=== PATIENT | female | born 1960 | race Caucasian/White ===

== ENCOUNTER 2024-02-11 09:50 | Outpatient (AMB) | payer OTHER, SELFPAY ==
--- NOTE | 2024-02-11 10:29 | MHC.PC.OV ---
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 Is last menstrual period known: No Post menopausal: Yes Patient : No Allergies No Known Allergies Allergy (Verified 02/11/24 10:30) Medication List - Last Reconciled 02/11/24 by Luis Cherry MD No Known Home Meds Tobacco use date assessed: 02/11/24 Fall risk assessment: No Falls in past year Last assessed Fall Risk: 02/11/24 Dental Screening Dental Screen Date: 02/11/24 Did you have a dental visit in the last 12 months?: Yes Did you have a dental problem in the last 6 months where you did not have access to dental care?: Yes Was dental information given to patient?: Patient has dentist HPI EXECUTIVE SECRETARY/ Est Care HPI Details New Patient? ?? Prior PCP:?Dr Jimmy Mcgregor Last office visit/CPE:? Acute issue(s):? 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 Patient?has?seen?Cardiology?and?was?offered?beta-blockers?but?she?declined?this.??They?recommended?Valsalva?maneuvers?or?go?to?the?ED?if?these?are?not?working. ?? PMHx:? SVT/AVNRT, HLD, Nephrolithiasis SurgHx:?L Hip Replacement FHx:? Mom: HLD. Dad: Large B-cell Lymphoma. SocHx:?Nonsmoker. EtOH 1-2 dr on weekend. No drugs PFSH Surgical History (Updated 02/11/24 @ 10:31 by Jahana Mccartney, CCMA) History of left hip replacement Social History (Updated 02/11/24 @ 10:32 by James Mccartney [facility]) Housing: House Patient Tobacco Use Status: Never used Tobacco e-Cigarette/Vaping Use: Never Used Second Hand Smoke Exposure: No Use of substances other than those prescribed or required for medical reasons: No Patient : No service: No Current occupational status: employed Current occupation: nurse Current occupational exposures/hazards: No Cognitive needs: No Hearing needs: No Vision needs: No Questionnaire PHQ-9 Over the last 2 weeks, how often have you been bothered by any of the following problems? 1. Little interest or pleasure in doing things: not at all 2. Feeling down, depressed, or hopeless: not at all 3. Trouble falling or staying asleep, or sleeping too much: not at all 4. Feeling tired or having little energy: not at all 5. Poor appetite or overeating: not at all 6. Feeling bad about yourself - or that you are a failure or have let yourself or your family down: not at all 7. Trouble concentrating on things, such as reading the newspaper or watching television: not at all 8. Moving or speaking so slowly that other people could have noticed. Or the opposite - being so fidgety or restless that you have been moving around a lot more than usual: not at all 9. Thoughts that you would be better off or of hurting yourself in some way: not at all Total score: 0 Depression Screening Interpretation: Negative Depression Screening Done: Yes 47058 - PHQ-9 Billing: Yes Source: Developed by Drs. Carlos Martinez, Jennifer Cohen, Brenton Costello and colleagues, with an educational deborah from [employer]. Thrive Questionnaire Date Thrive assessed: 02/11/24 I am a: Patient What is your living situation today?: I have a steady place to live Within the past 12 months, did the food you bought not last and you didn't have the money to get more?: Never true Within the past 12 months, did you worry whether your food would run out before you got money to buy more?: Never true Do you have trouble paying for medicines?: No Do you have trouble getting transportation to medical appointments?: No Do you have trouble paying your heating and electricity bill?: No Do you have trouble taking care of your child, family member or friend?: No Do you have trouble with day-to-day activities such as bathing, preparing meals, shopping, managing finances, etc.?: No Are you currently unemployed and looking for a job?: No Are you interested in more education?: No Please select the resources that you would like help with: None Currently or been in a relationship where the following occur: No concerns reported THRIVE Score: 0 AUDIT C Alcohol Use Questionnaire (AUDIT-C) 1. How often do you have a drink containing alcohol?: 2-4 times a month 2. How many drinks containing alcohol do you have on a typical day when you are drinking?: 1 or 2 3. How often do you have six or more drinks on one occasion?: Never Total Score: 2 KEM-7 AMB Questionnaire KEM-7 Date KEM - 7 assessed: 02/11/24 Feeling nervous, anxious, or on edge: 0 = Not at all Not being able to stop or control worryin = Not at all Worrying too much about different things: 0 = Not at all Trouble relaxin = Not at all Being so restless that it is hard to sit still: 0 = Not at all Becoming easily annoyed or irritable: 0 = Not at all Feeling afraid as if something awful might happen: 0 = Not at all Total KEM-7 score (0-4 normal; 5-9 mild; 10-14 moderate; 15-21 severe): 0 Source: Developed by Drs. Carlos Martinez, Jennifer Cohen, Brenton Costello and colleagues, with an educational deborah from [employer]. KEM-7 Assessment Billing KEM-7 Assessment Tool: KEM-7 Assessment 60176 Review of Systems Const Denies chills, Denies fatigue, Denies fever(s), Denies headache(s) and Denies weakness ENT Denies dizziness and Denies headache(s) Card Denies chest pain, Denies lightheadedness, Denies dyspnea and Denies other (Palpitations) Resp Denies cough, Denies dyspnea, Denies wheezing and Denies other ( shortness of breath) Musc Denies numbness and Denies tingling Neuro Denies dizziness, Denies headache(s), Denies numbness, Denies tingling, Denies paresthesias and Denies weakness Psych Denies anxiety and Denies depression Endo Denies fatigue Aller/Immun Denies wheezing Physical exam (Primary Care) Vital Signs: Last Vital Signs Temp 98.6 F 02/11/24 10:35 Pulse 72 02/11/24 10:35 Resp 16 02/11/24 10:35 BP 136/79 02/11/24 10:35 Pulse Ox 100 02/11/24 10:35 Oxygen Delivery Method Room Air 02/11/24 10:35 BMI result Body Mass Index 33.0 Tobacco/Smoking Status: Tobacco use Status Tobacco use date assessed 02/11/24 02/11/24 10:33 Patient Tobacco Use Status Never used Tobacco 02/11/24 10:33 e-Cigarette/Vaping Use Never Used 02/11/24 10:33 PHQ-9: PHQ-9 Score PHQ-9: Total score 0 02/11/24 10:45 Depression Screening Interpretation: Negative Thrive Assessment: Date of Thrive Assessment Date Thrive assessed 02/11/24 02/11/24 10:33 Currently or been in a relationship where the following occur: No concerns reported Const General: no acute distress and well developed Nutritional Appearance: well nourished Orientation/consciousness: patient oriented x3 HENMT Head: Yes normocephalic and Yes atraumatic Eyes General: appearance normal, both eyes and all related structures Pupils: Equal, round and reactive pupils present EOM: EOMs intact bilaterally Resp Effort & Inspection: normal respiratory effort Auscultation: clear to auscultation bilaterally Cardio Rate: regular rate Rhythm: regular rhythm Heart sounds: S1 normal heart sound present, S2 normal heart sound present, no gallops, no murmurs and no rubs Neuro General: patient oriented x3 and gait normal Cranial nerves: Yes Equal, round and reactive pupils present Psych Affect: normal affect Coding Level of Care Code New Pt Level 3 (35624) Diagnoses SVT (supraventricular tachycardia) I47.10 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 This?resolved?with?adenosine?and?has?not?recurred Patient?declined?beta-blockers?and?was?advised?to?initiate?Valsalva?maneuvers?and?go?to?the?ED?if?these?are?not?working. However,?patient?has?not?had?any?further?episodes. Cardiac?exam?today?is?within?normal?limits.??EKG?shows?sinus?rhythm?with?normal?axis?and?intervals,?no?hypertrophy,?no?ST-T-wave?changes. Patient?had?also?had?elevated?pro?BNP?and?this?will?be?rechecked Follow-up?with?Cardiology?as?recommended (2) AVNRT (AV jamey re-entry tachycardia): Code(s): I47.19 - Other supraventricular tachycardia Category: Medical Plan: As above (3) Nephrolithiasis: Code(s): N20.0 - Calculus of kidney Category: Medical Plan: History?of?renal?stones?but?patient?says?she?has?had?no?recent?episodes.??She?is?hydrating?well She?can?follow-up?with?specialist?as?recommended (4) Hyperlipidemia: Code(s): E78.5 - Hyperlipidemia, unspecified Category: Medical Plan: History?of?hyperlipidemia Check?labs (5) Laboratory exam ordered as part of routine general medical examination: Code(s): Z00.00 - Encounter for general adult medical examination without abnormal findings Category: Medical Plan: Check labs Orders: Orders Complete Blood Count Auto Diff Today Z00.00 - Encounter for general adult medical examination without abnormal findings Microalbumin, Random (w Creat) Today I10 - Essential (primary) hypertension Lipid Panel Today Z00.00 - Encounter for general adult medical examination without abnormal findings NT-proBNP Today I47.10 - Supraventricular tachycardia, unspecified Comprehensive [place]. Panel Fast Today Z00.00 - Encounter for general adult medical examination without abnormal findings UA and rflx microscopic Today Z00.00 - Encounter for general adult medical examination without abnormal findings TSH reflex Free T4 Today Z00.00 - Encounter for general adult medical examination without abnormal findings AMB EKG-In Office Today I47.10 - Supraventricular tachycardia, unspecified, I47.19 - Other supraventricular tachycardia
[2024-02-11 10:35] VITALS: BP 136/79; PULSE 72; RESP 16; TEMP 37; O2SAT 100; BMI 33.0
== END 2024-02-11 11:09 | disposition home or self-care (01) ==
PROVIDERS: PCP Family Medicine; Visit Provider Family Medicine
DX: I47.10 Supraventricular tachycardia, unspecified (principal); I47.19 Other supraventricular tachycardia; N20.0 Calculus of kidney; E78.5 Hyperlipidemia, unspecified; Z00.00 Encounter for general adult medical examination without abnormal findings

== ENCOUNTER → 2024-02-11 09:50 | Outpatient (BNVA) | payer OTHER, SELFPAY | PROVIDERS: PCP Family Medicine; Visit Provider Family Medicine | DX: I47.19 Other supraventricular tachycardia (principal); N20.0 Calculus of kidney; E78.5 Hyperlipidemia, unspecified | CPT/HCPCS: 96127; 99202 ==